=== PATIENT | male | born 1990 | race American Indian/Alaskan Native ===

== ENCOUNTER 2017-11-08 20:59 | Emergency (ER) | payer SELFPAY ==
[2017-11-08 21:18] VITALS: BP 154/83
--- NOTE | 2017-11-09 00:02 | XRay Report ---
FINAL REPORT PROCEDURE: XR FOOT 3+V LT TECHNIQUE: LEFT foot radiographs, AP, lateral, and oblique views. CPT 07790 HISTORY: Left heel pain COMPARISON: No prior studies are available for comparison. FINDINGS: Fracture (s) and/or Dislocation(s): None . Alignment: Normal . Joint space(s): Normal . Soft tissues: Normal . Bone mineralization: Normal . Foreign bodies: None . Calcaneal spurring: None . IMPRESSION: Normal Examination .
[2017-11-09] MEDS ORDERED: NORCO 5/325 PO ONE ×3 (00:26→00:45)
[2017-11-09] MEDS ORDERED: NORCO 5/325 ONE (00:26)
--- NOTE | 2017-11-09 00:26 | Emergency Department Report ---
ED Lower Extremity HPI - General Chief Complaint: Extremity Injury, Lower Stated Complaint: SPRAINED ANKLE Time Seen by Provider: 11/08/17 23:11 Source: patient Mode of arrival: Ambulatory Limitations: No Limitations - History of Present Illness Initial Comments: Patient here complaining that he was pain basketball today and injured his left heel and he is having pain to the back of his heel also going up distally posterior leg. He reports pain is also radiating into the back of his calf. Pain is 5 out of 10 in a can. Worse with movement better with rest. No medication taken. Denies any other injuries. Patient said he did not fall he was in the squat position when this happened he said he squat to get the ball and was also dribbling and injury occurred. MD Complaint: foot injury (left heel pain after playing basketball) -: This evening Injury: Leg: Left (posterior leg left), Foot: Left (left heel) Type of Injury: other (injured while playing basketball.) Place: street/outdoors Severity: moderate Severity scale (0 -10): 5 Improves With: nothing Worsens With: weight bearing, movement, palpation Context: jumping Associated Symptoms: swelling, unable to bear weight. denies: snap/pop sensation, numbness, tingling, able to partially bear weight, ambulatory Treatments Prior to Arrival: cold therapy - Related Data Previous Rx's Medication Instructions Recorded Last Taken Type Acetaminophen with Codeine 1 each PO Q6H PRN #16 tablet 11/09/17 Unknown Rx [Tylenol with Codeine #3 Tablet] Ibuprofen [Motrin] 600 mg PO Q8H PRN #15 tablet 11/09/17 Unknown Rx Allergies Allergy/AdvReac Type Severity Reaction Status Date / Time No Known Allergies Allergy Unverified 03/18/14 16:57 ED Review of Systems ROS: Stated complaint: SPRAINED ANKLE Other details as noted in HPI Comment: All other systems reviewed and negative Constitutional: no symptoms reported Respiratory: no symptoms reported Cardiovascular: denies: chest pain, palpitations, dyspnea on exertion, orthopnea , edema, syncope, paroxysmal nocturnal dyspnea Gastrointestinal: denies: abdominal pain, nausea, vomiting, diarrhea Genitourinary: denies: hematuria Musculoskeletal: joint swelling, arthralgia. denies: back pain, myalgia Skin: denies: rash Neurological: weakness, abnormal gait. denies: headache, numbness, paresthesias , confusion, vertigo ED Past Medical Hx - Past Medical History Previous Medical History?: Yes Hx Congestive Heart Failure: No Hx Diabetes: No Hx Asthma: Yes (childhood asthma) Hx COPD: No - Surgical History Past Surgical History?: Yes Additional Surgical History: Colon Surgery - Family History Family history: hypertension - Social History Smoking Status: Never Smoker Substance Use Type: None - Medications Home Medications: Home Medications Medication Instructions Recorded Confirmed Last Taken Type Acetaminophen with Codeine 1 each PO Q6H PRN #16 tablet 11/09/17 Unknown Rx [Tylenol with Codeine #3 Tablet] Ibuprofen [Motrin] 600 mg PO Q8H PRN #15 tablet 11/09/17 Unknown Rx ED Physical Exam - General Limitations: No Limitations General appearance: alert, in no apparent distress - Head Head exam: Present: atraumatic, normocephalic, normal inspection, other (normal exam) - Eye Eye exam: Present: normal appearance, PERRL, EOMI. Absent: periorbital swelling , periorbital tenderness Pupils: Present: normal accommodation - ENT ENT exam: Present: normal exam, normal orophraynx, mucous membranes moist - Neck Neck exam: Present: normal inspection, full ROM, other (no C-spine tenderness). Absent: tenderness, meningismus, lymphadenopathy - Respiratory Respiratory exam: Present: normal lung sounds bilaterally. Absent: respiratory distress, chest wall tenderness - Cardiovascular Cardiovascular Exam: Present: normal rhythm, tachycardia, normal heart sounds. Absent: systolic murmur, diastolic murmur - GI/Abdominal GI/Abdominal exam: Present: soft, normal bowel sounds. Absent: distended, tenderness, rigid - Expanded Lower Extremity Exam Left Hip exam: Present: normal inspection, full ROM, pelvic stability. Absent: tenderness, swelling, abrasion, laceration, ecchymosis, deformity, crepidus, dislocation, erythema, external rotation, internal rotation, shortening Upper Leg exam: Present: normal inspection, full ROM. Absent: tenderness, swelling, abrasion, laceration, ecchymosis, deformity, crepidus, dislocation, erythema Knee exam: Present: normal inspection, full ROM, full knee extension. Absent: tenderness, swelling, abrasion, laceration, ecchymosis, deformity, crepidus, dislocation, erythema, effusion, pain w/ pronation/supination, posterior draw sign, pain/laxity with valgus, pain/laxity with varus Lower Leg exam: Present: tenderness (Achilles tendon left), swelling (Achilles tendon). Absent: normal inspection, full ROM, abrasion, laceration, ecchymosis , deformity, crepidus, dislocation, erythema, palpable cord, Joshua's sign Ankle exam: Present: normal inspection, full ROM. Absent: tenderness, swelling , abrasion, laceration, ecchymosis, deformity, crepidus, dislocation, erythema Foot/Toe exam: Present: normal inspection, tenderness (left calcaneal bone), calcaneal tenderness. Absent: full ROM, swelling, abrasion, laceration, ecchymosis, deformity, crepidus, dislocation, erythema, amputation, puncture wound, foreign body, tenderness at base of 5th metatarsal, nail avulsion, subungual hematoma Neuro vascular tendon exam: Present: no vascular compromise, motor deficit ( decreased strength to left ankle and foot due to injury.), tendon deficit ( Achilles tendon .positive Hunt past), significant pain with passive ROM of distal joint. Absent: pulse deficit, abnormal cap refill, sensory deficit, extremity cold to touch, pallor, abnormal 2-point discrimination, decreased fine /light touch, foot drop, peroneal nerve deficit Gait: Positive: antalgic - Back Exam Back exam: Present: normal inspection, full ROM, other (unable to ambulate due to Achilles tendinosis). Absent: tenderness, CVA tenderness (R), CVA tenderness (L), muscle spasm, paraspinal tenderness, vertebral tenderness, rash noted - Neurological Exam Neurological exam: Present: alert, oriented X3, abnormal gait (due to Achilles tendinosis), motor sensory deficit (decrease in motor function. No sensory deficit). Absent: reflexes normal (reflexes are normal to lower extremity except for ankle reflex to left ankle is 1.) - Psychiatric Psychiatric exam: Present: normal affect, normal mood - Skin Skin exam: Present: warm, dry, intact, normal color. Absent: rash ED Course Vital Signs 11/08/17 11/08/17 11/09/17 21:12 21:49 00:44 Temperature 98.6 F 98.6 F Pulse Rate 101 H 101 H 96 H Respiratory 12 Rate Blood Pressure 154/83 154/83 O2 Sat by Pulse 96 98 Oximetry - Reevaluation(s) Reevaluation #1: 11/09/17 00:32 Shawnee 5/325 2 tablets, crutches and OCL left posterior splint. Patient with positive Hunt test left. X-ray shows no calcaneal fracture. Reevaluation #2: 11/09/17 01:00 Patient was given Shawnee 5/325 one tablet earlier and given another at this time due to pain. See procedure note for detail and splinted. - Orthopedic Splinting/Casting Injury #1 Side: left Lower Extremity Injury Location: ankle Lower Extremity Immobilizer: posterior splint Other Orthopedic Equipment: walker Additional Comments: Patient with good color, sensation and movement in temperature to toes of left foot. ED Lower Extremity MDM - Radiology Data Radiology results: report reviewed X-ray of left foot reveals no acute fracture or dislocation. - Medical Decision Making D course: Patient presents to emergency room after he reports he injured his left foot after pain basketball. Physical findings for positive Hunt test left lower extremity. X-ray report reveals normal x-ray of left foot. Patient with swelling over Achilles tendon with tenderness to palpate from left calcaneal to left Achilles tendon. He has decreased ankle reflex to left side. I discussed patient diagnosis and treatment plan and he voiced understanding. Patient does not have access to primary care. I discussed with him I'll refer him to [facility] and also to Dr. Ly who is orthopedic doctor that he needs to call in the morning to schedule an appointment. Posterior ankle splint placed and patient given crutches. See details on splinting and procedure note. Patient was given a total of 2 Shawnee 5/325 in emergency room for pain. Crutches given. Patient discharged home with prescription for Motrin and Tylenol 3 and he voiced the understanding need to follow-up. Critical care attestation.: If time is entered above; I have spent that time in minutes in the direct care of this critically ill patient, excluding procedure time. ED Disposition Clinical Impression: Achilles tendinosis of left lower extremity, Arthralgia of multiple sites Injury of left foot Qualifiers: Encounter type: initial encounter Qualified Code(s): S99.922A - Unspecified injury of left foot, initial encounter Disposition: TO HOME OR SELFCARE Is pt being admited?: No Does the pt Need Aspirin: No Condition: Stable Instructions: Arthralgia (ED), Achilles Tendinitis (ED), Achilles Tendon Rupture (ED), Splint Care (ED), Crutch Instructions (ED) Additional Instructions: Please take Motrin for inflammation and pain and Tylenol No. 3 for pain that is not controlled by Motrin. Please do not drive or operate heavy machinery while taking Tylenol No. 3 at this medication causes drowsiness He can [facility] for [facility] care issues Please follow-up with Dr. Ly, orthopedic doctor for Achilles tendinosis. You will need to call his office tomorrow to schedule an appointment. See discharge instruction on splint care, crutches and Rice therapy Prescriptions: Acetaminophen with Codeine [Tylenol with Codeine #3 Tablet] 1 each PO Q6H PRN # 16 tablet PRN Reason: moderate to severe pain Ibuprofen [Motrin] 600 mg PO Q8H PRN #15 tablet PRN Reason: Pain Referrals: [facility] [Outside] - 11/10/17 NIKKI LY MD [Staff Physician] - 11/10/17 Forms: Accompanied Note, Work/School Release Form(ED)
== END 2017-11-09 01:30 | disposition home or self-care (01) ==
LOC: ED 20:59
DX: M77.9 Enthesopathy, unspecified (principal)
CPT/HCPCS: 99283